=== PATIENT | male | born 1985 | race Caucasian/White ===

== ENCOUNTER 2017-02-06 19:26 | Emergency (ER) | payer OTHER ==
[~2017-02-06] VITALS: Ht 180.3 cm; Wt 72.6 kg
--- NOTE | 2017-02-06 19:36 | ED PSYCHIATRIC COMPLAINT ---
History of Present Illness General Chief Complaint: ETOH/Drug Related Complaint Stated Complaint: BIBA PSYCH Source: patient, EMS, police Exam Limitations: intoxication Vital Signs & Intake/Output Vital Signs & Intake/Output Vital Signs Date Time Temp Pulse Resp B/P B/P Pulse O2 O2 Flow FiO2 Mean Ox Delivery Rate 02/06 2113 96.8 111 20 124/59 97 Room Air 02/07 1936 Room Air 02/06 1929 97.8 116 20 141/80 94 Room Air Allergies Coded Allergies: Sulfa (Sulfonamide Antibiotics) (HIVES 02/06/17) Reconcile Medications No Known Home Medications Triage Note: PT BIBA ON A PEC.+ETOH, PER EMS PT WAS BOTHERING NEIGHBORS AND TRESPASSING, POLICE WERE CALLED AND PT GOT INTO SMALL ALTERCATION WITH POLICE THAT RESULTED IN HIM BEING TAZED IN THE ABDOMEN. PT DENIES ANY DRUG USE. DENIES SI/HI. Triage Nurses Notes Reviewed? yes Onset: Abrupt (1) Duration: hour(s): (1) Timing: single episode today Severity: mild, moderate Associated Symptoms: GOT INTO ALTERCATION WITH NEIGHBOR HPI: This is a 31-year-old male brought into the hospital via EMS, the by police currently under arrest for having an altercation with his neighbor with the police. Patient is to drink or sustain states he was sitting on his neighbors . Admits to using marijuana today denies any cocaine. He is not suicidal or homicidal. He is currently living in [place] with his father. No previous psychiatric treatment that he admits to. The patient was tasered by a stun gun to the abdomen by police. He states he felt something shoot out of his right leg. There is a bruise to his right posterior lateral leg. Denies any chest pain or shortness of breath. He admits to headache. Past History Travel History Traveled to [place] past 21 day No Medical History Any Pertinent Medical History? none Surgical History Surgical History: non-contributory Psychosocial History What is your primary language Japanese Tobacco Use: Refused to answer ETOH Use: alcoholic Illicit Drug Use: marijuana Family History Hx Contributory? No Review of Systems Review of Systems Constitutional: Denies: chills, fever. EENTM: Reports: no symptoms. Respiratory: Denies: cough, short of breath, sputum production. Cardiovascular: Denies: chest pain. GI: Reports: no symptoms. Genitourinary: Reports: no symptoms. Musculoskeletal: Reports: no symptoms. Skin: Reports: no symptoms. Neurological/Psychological: Reports: emotional problems. Denies: anxiety. Hematologic/Endocrine: Denies: bruising, bleeding, polyuria, polydipsia. Immunologic/Allergic: Denies: splenectomy. All Other Systems: Reviewed and Negative Physical Exam Physical Exam General Appearance: well developed/nourished, alert, awake, mild distress, UNKEMPT Head: atraumatic Eyes: Bilateral: PERRL, EOMI. Ears, Nose, Throat: normal pharynx, normal ENT inspection, hearing grossly normal, ALCOHOL ON BREATH Neck: normal inspection, supple Respiratory: normal breath sounds Cardiovascular: tachycardia Gastrointestinal: soft, non-tender Extremities: normal range of motion Neurological/Psychiatric: no motor/sensory deficits, awake, alert, calm Appearance/Memory/Insight: disheveled, impaired insight Behavoir/Eye Contact/Speech: compulsive, normal speech Thoughts/Hallucinations: no apparent hallucination Skin: intact, normal color, warm/dry SAD PERSONS Done? patient not suicidal Progress Differential Diagnosis: ALCOHOL ABUSE, ALCOHOL INTOXICATION, MARIJUANA ABUSE Plan of Care: Orders Procedure Date/time Status EKG 02/06 2001 Active URINE DRUG SCREEN FOR ER ONLY 02/06 1958 Complete URINALYSIS 02/06 1958 Complete EKG 02/06 1945 Active Laboratory Tests 02/06/17 2005: Urine Opiates Screen < 100.00, Methadone Screen < 40, Barbiturate Screen < 60, Ur Phencyclidine Scrn < 6.00, Amphetamines Screen 140, U Benzodiazepines Scrn < 85, Urine Cocaine Screen < 50, Urine Cannabis Screen > 80.00 H, Urine Color YEL , Urine Clarity CLEAR, Urine pH 6.0, Ur Specific [place] <= 1.005, Urine Protein NEG, Urine Ketones TRACE H, Urine Nitrite NEG, Urine Bilirubin NEG, Urine Urobilinogen 0.2, Ur Leukocyte Esterase NEG, Ur Microscopic EXAM NOT REQUIRED, Urine Hemoglobin NEG, Urine Glucose NEG UA/UTOX. NS ORDERED. 21:40 PATIENT AWAKE, ALERT. STABLE FOR DISCHARGE HOME. NO SI/HI. DOES NOT WANT TO SEE CRISIS. PATIENT FEELS BETTER AFTER IV FLUIDS. HR 90 BPM. WILL BE DISCHARGED WITH POLICE IN CUSTODY. (FEDE MERCADO,FISH) Initial ED EKG: SINUS TACHYCARDIA Departure Departure Time of Disposition: 2138 Disposition: HOME OR SELF CARE Condition: Stable Clinical Impression Primary Impression: Alcohol intoxication Referrals: UNKNOWN Additional Instructions: Please follow up with your primary care doctor in the office. Return as needed. Departure Forms: Customer Survey General Discharge Information Prescriptions: Current Visit Scripts No Known Home Medications
[2017-02-06 21:13] VITALS: BP 124/59
== END 2017-02-06 22:00 ==
LOC: ERH 19:26
DX: F10.129 Alcohol abuse with intoxication, unspecified (principal); T75.4XXA Electrocution, initial encounter; Y35.893A Legal intervention involving other specified means, suspect injured, initial encounter; Y93.9 Activity, unspecified; Y92.9 Unspecified place or not applicable
CPT/HCPCS: 80307; 81003; 93005; 93010; 96360

== ENCOUNTER 2018-04-23 18:05 | Emergency (ER) | payer SELFPAY ==
[~2018-04-23] VITALS: Ht 180.3 cm; Wt 90.7 kg
[2018-04-23 18:11] VITALS: BP 163/99
--- NOTE | 2018-04-23 18:45 | ED SKIN/ALLERGY COMPLAINT ---
History of Present Illness General Chief Complaint: Laceration Procedure Stated Complaint: BIBA PEER LAC AND +ETOH Source: patient Exam Limitations: intoxication Vital Signs & Intake/Output Vital Signs & Intake/Output Vital Signs Date Time Temp Pulse Resp B/P B/P Pulse O2 O2 Flow FiO2 Mean Ox Delivery Rate 04/23 1811 99.4 136 22 163/99 96 Room Air Allergies Coded Allergies: Sulfa (Sulfonamide Antibiotics) (HIVES 04/23/18) Reconcile Medications Cephalexin (Keflex) 750 MG CAPSULE 1 CAP PO BID PREVENT WOUND INFECTION Triage Note: PT BIBA TO ER RM 7 FOR LACERATION TO R ANKLE BY CHAINSAW ON PEER. PER REPORT PATIENT KICKED THE CHAINSAW. PT STATES "IT WAS JUST THERE WHEN I WALKED IN THE DOOR". CHAINSAW WAS NOT ON. PT WAS INTOXICATED ON SCENE AND NOT ACTING APPROPRIATELY PER [employer] WHICH IS WHY THEY PLACED HIM ON PEER. ALSO PER REPORT PATIENTS FATHER CALLED 911. NO FAMILY PRESENT AT THIS TIME. WHEN ASKED ABOUT DRINKING PT RESPONDS THAT HE GAVE UP THE PILLS AND DRUGS 1.5 YRS AGO SO NOW HE DRINKS. STATES HE IS A HEAVY DRINKER BUT ONLY DRINKS BEER. DR WINSLOW PRESENT FOR EVAL ON ARRIVAL TO ER. PT HAS APPROX 4" LAC TO L LATERAL ANKLE, NO LONGER BLEEDING. +CMS. PT DENIES ANY PAIN. DR WINSLOW SUTURING AT PRESENT. Triage Nurses Notes Reviewed? yes Onset: Abrupt Duration: minute(s):, constant, continues in ED Timing: single episode today Severity: severe HPI: Patient presents for evaluation of a right ankle laceration sustained prior to arrival. Patient states that he walked into a chainsaw lacerating his ankle. Fortunately the chain saw was not running. Patient does admit to alcohol intake today and he generally drinks about 4-5 beers daily. His last tetanus immunization was between 10 and 12 years ago. Past History Travel History Traveled to [place] past 21 day No Medical History Any Pertinent Medical History? 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 No Review of Systems Review of Systems Constitutional: Reports: no symptoms. EENTM: Reports: no symptoms. Respiratory: Reports: no symptoms. Cardiovascular: Reports: no symptoms. GI: Reports: no symptoms. Genitourinary: Reports: no symptoms. Musculoskeletal: Reports: no symptoms. Skin: Reports: see HPI. Neurological/Psychological: Reports: no symptoms. Hematologic/Endocrine: Reports: no symptoms. Immunologic/Allergic: Reports: no symptoms. All Other Systems: Reviewed and Negative Physical Exam Physical Exam General Appearance: see below Comments: Gen.: Well-nourished, well-developed, no acute respiratory distress. Mild EtOH- like odor. Head: Normocephalic, atraumatic. Eyes: Normal inspection bilaterally Ears: Normal inspection bilaterally Nose: Normal inspection Throat/mouth : Moist mucosa Neck: Supple, full range of motion, no goiter Heart: Regular rate and rhythm Lungs: Quiet respirations Back: Normal range of motion Extremities: Right ankle: Full thickness laceration of the lateral right ankle sparing the subcutaneous tissues Neurologic: Cranial nerves grossly intact, speech is clear Skin: warm and dry Psychiatric: Calm, cooperative, no apparent delusions or hallucinations Diagram Feet, Bilateral: 1) FULL THICKNESS LACERATION SPARING SUB Q TISSUE Progress Differential Diagnosis: laceration, tendon injury, joint injury, bony injury, foreign body Plan of Care: Current Medications Sig/Vanessa Start time Last Medication Dose Stop Time Status Admin Tetanus/Diphtheria 0.5 ML ONCE ONE 04/23 1900 AC Toxoids Adsorbed 04/23 1901 (Decava) Comments: 04/23/2018 6:52:44 PM at patient's adamant request his wound was cleaned and repaired without anesthesia. He tolerated the procedure well. He states he has arranged for a ride home. At discharge his patient's gait was stable and his speech only very mildly slurred. Departure Departure Disposition: HOME OR SELF CARE Condition: Stable Clinical Impression Primary Impression: Laceration of ankle, right Qualifiers: Encounter type: initial encounter Qualified Code: S91.011A - Laceration without foreign body, right ankle, initial encounter Referrals: Patient Has No Primary Care Dr (PCP/Family) Additional Instructions: Have the sutures removed in 2 weeks. Follow-up with your primary care physician or return to the emergency department for wound check in 48 hours. Bacitracin and gauze dressing for the next 4-5 days and a dry gauze dressing if needed. Cephalexin as prescribed to prevent infection. Return if any concerns or sudden worsening. If you do not currently have a primary care physician then please contact the [facility] care practice at the following phone number: . Thank you for choosing the [facility] Emergency [facility] for your care. It was a pleasure to serve you today. Hayden Winslow M.D. [facility] Departure Forms: Customer Survey General Discharge Information Prescriptions: Current Visit Scripts Cephalexin (Keflex) 1 CAP PO BID #[id number] CAP Procedures Laceration/Wound Repair Laceration/Wound Repair: Wound Length (cm): 5 Wound Explored: clean Irrigated w/ Saline (ccs): 300 Betadine Prep? Yes Anesthesia: patient refused Wound Debrided: minimal Wound Repaired With: sutures Suture Size/Type: 4:0, nylon Number of Sutures: 18 Layer Closure? No
[2018-04-23] MEDS ORDERED: KEFLEX750 M1 PO (18:52)
== END 2018-04-23 19:15 ==
LOC: ERH 18:05
DX: S91.011A Laceration without foreign body, right ankle, initial encounter (principal); W29.3XXA Contact with powered garden and outdoor hand tools and machinery, initial encounter; Y92.9 Unspecified place or not applicable; Y93.9 Activity, unspecified
CPT/HCPCS: 90471; 90714